=== PATIENT | female | born 1970 | race Two or more races ===

== ENCOUNTER 2017-06-07 01:44 | Inpatient (IN) | END 2017-06-12 13:11 | disposition home or self-care (01) | DRG 77 ==

== ENCOUNTER 2017-09-26 01:50 | Emergency (ER) | END 2017-09-26 04:56 | disposition home or self-care (01) ==

== ENCOUNTER 2017-11-20 22:54 | Emergency (ER) | END 2017-11-21 00:05 | disposition home or self-care (01) ==

== ENCOUNTER → 2017-12-14 | Outpatient (CLI) | END | disposition home or self-care (01) ==

== ENCOUNTER 2018-01-13 11:51 | Emergency (ER) | END 2018-01-13 14:24 | disposition home or self-care (01) ==